=== PATIENT | male | born 1950 | race Caucasian/White ===

== ENCOUNTER → 2023-01-27 13:28 | Outpatient (CLI) | payer OTHER, SELFPAY ==
--- NOTE | 2023-01-27 13:39 | XR_ITS ---
FINAL REPORT CLINICAL HISTORY: RT WRIST FX in 1969, patient is having limited range of motion in right wrist. FINDINGS: RIGHT WRIST SERIES Two views of the right wrist were obtained. There is a chronic deformity of the distal radius which is consistent with the prior fracture. 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 There is mild degenerative change. There is no soft tissue abnormality. IMPRESSION: Chronic deformity of the distal radius, consistent with a prior fracture. 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 Reviewed, Interpreted and Dictated by Stephan Raymundo III, MD Transcribed by Colby Pardo Authenticated and . [facility]
== END ==
PROVIDERS: PCP Chiropractor; Visit Provider Chiropractor
DX: M25.531 Pain in right wrist (principal); S62.101A Fracture of unspecified carpal bone, right wrist, initial encounter for closed fracture
CPT/HCPCS: 73100